=== PATIENT | male | born 1995 | race Caucasian/White ===

== ENCOUNTER → 2017-03-08 07:36 | Outpatient (CLI) | payer OTHER | END | disposition home or self-care (01) | LOC: D.US 07:36 | DX: K90.49 Malabsorption due to intolerance, not elsewhere classified (principal) ==

== ENCOUNTER → 2017-03-16 11:43 | Outpatient (CLI) | payer OTHER | END | disposition home or self-care (01) | LOC: D.NM 11:43 | DX: R10.9 Unspecified abdominal pain (principal); K90.49 Malabsorption due to intolerance, not elsewhere classified ==

== ENCOUNTER 2017-04-21 05:21 | Day surgery (SDC) | payer OTHER ==
[~2017-04-21] VITALS: Ht 177.8 cm; Wt 94.8 kg
[~2017-04-21 05:21] MED LIST: IMODIUM2 MG PO
[2017-04-21 09:20] VITALS: BP 117/85; Ht 177.8 cm; Wt 94.8 kg
[2017-04-21] MEDS ORDERED: HYDROCODON-ACE1 EAC7 PO (14:16)
== END 2017-04-21 16:15 | disposition home or self-care (01) ==
LOC: D.OPS 05:21 → D.PAN 11:15 → D.OPS 12:00 → D.PAN 12:00 → D.OPS 16:15
DX: K80.20 Calculus of gallbladder without cholecystitis without obstruction (principal); R10.11 Right upper quadrant pain; Z01.812 Encounter for preprocedural laboratory examination

== ENCOUNTER → 2017-07-02 15:37 | Outpatient (CLI) | payer OTHER ==
[~2017-07-02 15:37] MED LIST changes: +HYDROCODON-ACE1 EAC7 PO
== END | disposition home or self-care (01) ==
LOC: D.LAB 15:37
PROVIDERS: Family Medicine
DX: R19.7 Diarrhea, unspecified (principal)